=== PATIENT | female | born 1955 | race Caucasian/White ===

== ENCOUNTER 2019-06-23 17:36 | Emergency (ER) | payer OTHER ==
[~2019-06-23] VITALS: Ht 154.9 cm; Wt 59.1 kg
[~2019-06-23 17:36] MED LIST: GLIP5 PO; LISI-660 PO; METF-960 PO; OM-31CAP8 PO; PRAV10TA39 PO
[2019-06-23] MEDS ORDERED: ATOR20TA86 PO (17:51)
[2019-06-23] MEDS ORDERED: SITA25 PO (17:51)
[2019-06-23] MEDS ORDERED: LISI-662 PO (17:51)
[2019-06-23 18:00] LABS: GLUCOSE,POINT OF CARE 142 MG/DL (70-110)
[2019-06-23] MEDS ORDERED: ACETAMINOPHEN 500 MG TABLET PO ONE (18:45)
[2019-06-23] MEDS ORDERED: OM-31CAP2 PO (18:52)
[2019-06-23] MEDS ORDERED: CYCLOBENZAPRINE HCL 10 MG TABLET PO ONE (20:30)
[2019-06-23 20:53] VITALS: BP 135/78
== END 2019-06-23 20:55 | disposition home or self-care (01) ==
LOC: EMS 19:30
DX: S39.012A Strain of muscle, fascia and tendon of lower back, initial encounter (principal); E11.9 Type 2 diabetes mellitus without complications; E78.00 Pure hypercholesterolemia, unspecified; I10 Essential (primary) hypertension; Z79.899 Other long term (current) drug therapy; Z79.84 Long term (current) use of oral hypoglycemic drugs; Z88.6 Allergy status to analgesic agent; X50.9XXA Other and unspecified overexertion or strenuous movements or postures, initial encounter; Y93.89 Activity, other specified; Y92.89 Other specified places as the place of occurrence of the external cause; Y99.8 Other external cause status
CPT/HCPCS: 72100

== ENCOUNTER 2021-10-14 17:39 | Inpatient (IN) | payer OTHER ==
[~2021-10-14] VITALS: Ht 157.5 cm; Wt 58.4 kg
[~2021-10-14 17:39] MED LIST changes: +ATOR20TA86 PO; -LISI-660 PO; +LISI-894 PO; +METF-1211 PO; -METF-960 PO; +OM-31CAP2 PO; -OM-31CAP8 PO; -PRAV10TA39 PO; +SITA25 PO
[2021-10-14] MEDS ORDERED: ACETAMINOPHEN 500 MG TABLET PO ONE (18:30)
[2021-10-14] MEDS ORDERED: AmLODIPine BESYLATE 10 MG TABLET PO ONE (20:15)
[2021-10-14 20:22] LABS: COVID AG,FIA SOURCE NASAL SWAB
[2021-10-14 20:23] LABS: BASOPHILS % (AUTO) 0.6 % (0.0-2.0); EOSINOPHILS % (AUTO) 2.4 % (1.0-6.0); HEMATOCRIT 35.7 % (36-46); HEMOGLOBIN 12.3 g/dL (12.0-16.0); LYMPHOCYTES # (AUTO) 1.8 K/uL (1.0-4.8); LYMPHOCYTES % (AUTO) 22.7 % (22.0-44.0); MEAN CORPUSCULAR HEMOGLOBIN 31.2 pg (26.0-34.0); MEAN CORPUSCULAR HGB CONC 34.5 G/dL (31.0-37.0); MEAN CORPUSCULAR VOLUME 90 fL (80-100); MONOCYTES # (AUTO) 0.5 K/uL (0.1-1.0); MONOCYTES % (AUTO) 6.4 % (2.0-9.0); NEUTROPHILS # (AUTO) 5.4 K/uL (1.8-7.7); NEUTROPHILS % (AUTO) 67.9 % (40.0-70.0); PLATELET COUNT (AUTO) 202 K/uL (150-450); RED BLOOD CELL COUNT(AUTO) 3.95 MIL/uL (4.00-5.20); RED CELL DISTRIBUTION WIDTH 12.7 % (11.5-14.5)
[2021-10-14 20:31] LABS: ANION GAP 5 mmol/L (8-16); CALCIUM, TOTAL 9.9 mg/dL (8.8-10.5); CARBON DIOXIDE 26 mmol/L (22-29); CHLORIDE 104 mmol/L (98-107); CREATININE 1.36 mg/dL (0.60-1.30); GLOMERULAR FILTR. RATE CALC 39 mL/min (>60); GLUCOSE,RANDOM 172 mg/dL (70-110); SODIUM SERUM 135 mmol/L (136-145); UREA NITROGEN, BLOOD 29 mg/dL (7-18)
[2021-10-14 20:38] LABS: ALANINE AMINOTRANSFERASE 26 U/L (12-78); ALBUMIN 3.4 g/dL (3.4-5.0); ALKALINE PHOSPHATASE 88 U/L (46-116); ASPARTATE AMINOTRANSFERASE 18 U/L (15-37); BILIRUBIN,TOTAL 0.4 mg/dL (0.1-1.0); TOTAL PROTEIN, SERUM 7.9 g/dL (6.4-8.2)
[2021-10-14 20:41] LABS: C-REACTIVE PROTEIN QUANT < 0.05 mg/dL (0.00-0.30)
[2021-10-14] MEDS ORDERED: VANCOMYCIN 1GM/WATER(PEG/NADA) 200 ML IV ONE (20:45)
[2021-10-14 21:25] LABS: ERYTHROCYTE SEDIMENTATION RATE 45 MM/HR (0-20)
[2021-10-14] MEDS ORDERED: 0.9% SODIUM CHLORIDE 10 ML SYRINGE IVP PRN (21:45)
[2021-10-14 23:16] VITALS: BP 197/87
[2021-10-15 05:41] VITALS: BP 147/72
[2021-10-15] MEDS: GlipiZIDE 5 MG TABLET PO SCH (06:06)
[2021-10-15 06:19] LABS: BASOPHILS % (AUTO) 0.5 % (0.0-2.0); EOSINOPHILS % (AUTO) 3.2 % (1.0-6.0); HEMATOCRIT 35.9 % (36-46); HEMOGLOBIN 12.2 g/dL (12.0-16.0); LYMPHOCYTES # (AUTO) 1.6 K/uL (1.0-4.8); LYMPHOCYTES % (AUTO) 27.2 % (22.0-44.0); MEAN CORPUSCULAR HEMOGLOBIN 30.9 pg (26.0-34.0); MEAN CORPUSCULAR HGB CONC 34.1 G/dL (31.0-37.0); MEAN CORPUSCULAR VOLUME 91 fL (80-100); MONOCYTES # (AUTO) 0.4 K/uL (0.1-1.0); MONOCYTES % (AUTO) 7.7 % (2.0-9.0); NEUTROPHILS # (AUTO) 3.5 K/uL (1.8-7.7); NEUTROPHILS % (AUTO) 61.4 % (40.0-70.0); PLATELET COUNT (AUTO) 196 K/uL (150-450); RED BLOOD CELL COUNT(AUTO) 3.96 MIL/uL (4.00-5.20); RED CELL DISTRIBUTION WIDTH 12.7 % (11.5-14.5)
[2021-10-15] MEDS: VANCOMYCIN HCL 1 GM in DEXTROSE 5%-WATER 250 ML IV SCH (07:34)
[2021-10-15] MEDS: ATORVASTATIN CALCIUM 20 MG TABLET PO SCH (07:55)
[2021-10-15] MEDS: SitaGLIPtin PHOSPHATE 25 MG TABLET PO SCH (07:55)
[2021-10-15] MEDS: LISINOPRIL 20 MG TABLET PO SCH (07:56)
[2021-10-15] MEDS ORDERED: VANCOMYCIN 1GM/WATER(PEG/NADA) 200 ML IV SCH (08:00)
[2021-10-15 08:36] VITALS: BP 146/74
[2021-10-15] MEDS ORDERED: DEXTROSE 50%-WATER 25 GM/50 ML SYRINGE IVP PRN (11:45)
[2021-10-15] MEDS: INSULIN LISPRO 100 UNITS/ML SQ PRN ×3 (12:07→21:10)
[2021-10-15 16:55] LABS: GLUCOMETER DEV NAME(LOC) 6S.1B; GLUCOSE,POINT OF CARE 291 MG/DL (70-110)
[2021-10-15 17:46] LABS: GLUCOMETER DEV NAME(LOC) 6N.2; GLUCOSE,POINT OF CARE 175 MG/DL (70-110)
[2021-10-15 17:51] LABS: GLUCOMETER DEV NAME(LOC) 6N.1; GLUCOSE,POINT OF CARE 252 MG/DL (70-110)
[2021-10-15 19:55] VITALS: BP 153/74
[2021-10-15 21:31] LABS: GLUCOMETER DEV NAME(LOC) 6S.1B; GLUCOSE,POINT OF CARE 347 MG/DL (70-110)
[2021-10-16 04:30] VITALS: BP 143/74
[2021-10-16] MEDS: GlipiZIDE 5 MG TABLET PO SCH (05:33)
[2021-10-16] MEDS: INSULIN LISPRO 100 UNITS/ML SQ PRN ×4 (05:34→20:33)
[2021-10-16 06:02] LABS: GLUCOMETER DEV NAME(LOC) 6S.1B; GLUCOSE,POINT OF CARE 213 MG/DL (70-110)
[2021-10-16 06:32] LABS: BILIRUBIN,TOTAL 0.5 mg/dL (0.1-1.0); CALCIUM, TOTAL 10.2 mg/dL (8.8-10.5); CREATININE 1.26 mg/dL (0.60-1.30); POTASSIUM 4.5 mmol/L (3.5-5.1); TOTAL PROTEIN, SERUM 7.3 g/dL (6.4-8.2); VANCOMYCIN,RANDOM 13.4 mcg/mL (25.0-50.0)
[2021-10-16] MEDS: VANCOMYCIN HCL 1 GM in DEXTROSE 5%-WATER 250 ML IV SCH (07:43)
[2021-10-16] MEDS ORDERED: SODIUM CHLORIDE 0.9% 250 ML IV ONE (07:48)
[2021-10-16 08:00] VITALS: BP 136/85
[2021-10-16] MEDS: SitaGLIPtin PHOSPHATE 25 MG TABLET PO SCH (09:09)
[2021-10-16] MEDS: LISINOPRIL 20 MG TABLET PO SCH (09:09)
[2021-10-16] MEDS: ATORVASTATIN CALCIUM 20 MG TABLET PO SCH (09:09)
[2021-10-16 16:00] VITALS: BP 162/75
[2021-10-16 17:41] LABS: GLUCOMETER DEV NAME(LOC) 6S.1B; GLUCOSE,POINT OF CARE 249 MG/DL (70-110)
[2021-10-16 18:51] VITALS: BP 188/82
[2021-10-16] MEDS ORDERED: LABETALOL HCL 5 MG/ML 20 ML VIAL IVP PRN (19:00)
[2021-10-16 19:45] VITALS: BP 179/75
[2021-10-16] MEDS: VANCOMYCIN HCL 500 MG in DEXTROSE 5%-WATER 100 ML IV SCH (20:01)
[2021-10-16 21:25] LABS: GLUCOMETER DEV NAME(LOC) 6N.1; GLUCOSE,POINT OF CARE 362 MG/DL (70-110)
[2021-10-16 23:32] VITALS: BP 137/69
[2021-10-17 02:30] LABS: GLUCOMETER DEV NAME(LOC) 6N.2; GLUCOSE,POINT OF CARE 180 MG/DL (70-110)
[2021-10-17 04:37] VITALS: BP 112/65
[2021-10-17] MEDS: GlipiZIDE 5 MG TABLET PO SCH (05:32)
[2021-10-17] MEDS: INSULIN LISPRO 100 UNITS/ML SQ PRN ×4 (05:35→20:45)
[2021-10-17 06:06] LABS: GLUCOMETER DEV NAME(LOC) 6N.1; GLUCOSE,POINT OF CARE 250 MG/DL (70-110)
[2021-10-17 06:10] LABS: CALCIUM, TOTAL 10.2 mg/dL (8.8-10.5); CREATININE 1.37 mg/dL (0.60-1.30); POTASSIUM 4.4 mmol/L (3.5-5.1)
[2021-10-17] MEDS: VANCOMYCIN HCL 500 MG in DEXTROSE 5%-WATER 100 ML IV SCH ×2 (07:30→20:44)
[2021-10-17 08:00] VITALS: BP 163/74
[2021-10-17] MEDS: AmLODIPine BESYLATE 10 MG TABLET PO SCH (08:59)
[2021-10-17] MEDS: SitaGLIPtin PHOSPHATE 25 MG TABLET PO SCH (08:59)
[2021-10-17] MEDS: ATORVASTATIN CALCIUM 20 MG TABLET PO SCH (08:59)
[2021-10-17] MEDS: LISINOPRIL 20 MG TABLET PO SCH (09:00)
[2021-10-17] MEDS ORDERED: COLCHICINE 0.6 MG TABLET PO PRN (11:00)
[2021-10-17 12:11] LABS: GLUCOMETER DEV NAME(LOC) 6N.2; GLUCOSE,POINT OF CARE 251 MG/DL (70-110)
[2021-10-17 16:13] VITALS: BP 139/69
[2021-10-17 17:27] LABS: GLUCOMETER DEV NAME(LOC) 6N.2; GLUCOSE,POINT OF CARE 246 MG/DL (70-110)
[2021-10-17 20:18] VITALS: BP 164/76
[2021-10-17 23:11] LABS: GLUCOMETER DEV NAME(LOC) 6S.1B; GLUCOSE,POINT OF CARE 350 MG/DL (70-110)
[2021-10-18 01:05] VITALS: BP 150/71
[2021-10-18 04:35] VITALS: BP 157/80
[2021-10-18] MEDS: GlipiZIDE 5 MG TABLET PO SCH (05:37)
[2021-10-18] MEDS: INSULIN LISPRO 100 UNITS/ML SQ PRN ×2 (05:40→12:22)
[2021-10-18 06:36] LABS: GLUCOMETER DEV NAME(LOC) 6S.1B; GLUCOSE,POINT OF CARE 287 MG/DL (70-110)
[2021-10-18 07:03] LABS: CALCIUM, TOTAL 10.4 mg/dL (8.8-10.5); CREATININE 1.29 mg/dL (0.60-1.30); POTASSIUM 4.9 mmol/L (3.5-5.1); VANCOMYCIN,RANDOM 22.5 mcg/mL (25.0-50.0)
[2021-10-18 08:32] VITALS: BP 137/76
[2021-10-18] MEDS: VANCOMYCIN HCL 500 MG in DEXTROSE 5%-WATER 100 ML IV SCH (08:51)
[2021-10-18] MEDS: SitaGLIPtin PHOSPHATE 25 MG TABLET PO SCH (08:51)
[2021-10-18] MEDS: AmLODIPine BESYLATE 10 MG TABLET PO SCH (08:51)
[2021-10-18] MEDS: LISINOPRIL 20 MG TABLET PO SCH (08:52)
[2021-10-18] MEDS: ATORVASTATIN CALCIUM 20 MG TABLET PO SCH (08:52)
[2021-10-18] MEDS ORDERED: AMLO-258 PO (13:13)
[2021-10-18] MEDS ORDERED: COLC0.6T73 PO (13:13)
[2021-10-18] MEDS ORDERED: CLIN-142 PO (13:13)
[2021-10-18] MEDS ORDERED: CLINDAMYCIN HCL 300 MG CAPSULE PO SCH (16:00)
[2021-10-18 17:07] LABS: GLUCOMETER DEV NAME(LOC) 6S.1B; GLUCOSE,POINT OF CARE 237 MG/DL (70-110)
== END 2021-10-18 14:45 | disposition home or self-care (01) | DRG 638 ==
LOC: EMS 17:51 → 6S 21:36
PROVIDERS: ADMIT Hospitalist; ATTEND Hospitalist
DX: E11.69 Type 2 diabetes mellitus with other specified complication (principal); M86.8X7 Other osteomyelitis, ankle and foot; M10.9 Gout, unspecified; L03.032 Cellulitis of left toe; L08.9 Local infection of the skin and subcutaneous tissue, unspecified; E78.5 Hyperlipidemia, unspecified; I10 Essential (primary) hypertension; Z20.822 Contact with and (suspected) exposure to COVID-19; E78.00 Pure hypercholesterolemia, unspecified; Z88.8 Allergy status to other drugs, medicaments and biological substances
CPT/HCPCS: 73718; 80048; 80053; 80202; 82962; 84550; 85025; 85651; 86140; 87040; 99285; J3370; J7050; J7060; Q9967

== ENCOUNTER 2022-11-04 09:25 | Emergency (ER) | payer MEDICARE, OTHER ==
[~2022-11-04] VITALS: Ht 157.5 cm; Wt 70.5 kg
[~2022-11-04 09:25] MED LIST changes: +AMLO-258 PO; +CLIN-142 PO; +COLC0.6T73 PO; -GLIP5 PO; +GLIP5TAB12 PO
[2022-11-04 09:51] LABS: BASOPHILS % (AUTO) 0.5 % (0.0-2.0); EOSINOPHILS % (AUTO) 3.6 % (1.0-6.0); HEMATOCRIT 37.4 % (36-46); HEMOGLOBIN 12.6 g/dL (12.0-16.0); LYMPHOCYTES # (AUTO) 1.4 K/uL (1.0-4.8); LYMPHOCYTES % (AUTO) 19.7 % (22.0-44.0); MEAN CORPUSCULAR HEMOGLOBIN 31.4 pg (26.0-34.0); MEAN CORPUSCULAR HGB CONC 33.6 G/dL (31.0-37.0); MEAN CORPUSCULAR VOLUME 94 fL (80-100); MONOCYTES # (AUTO) 0.4 K/uL (0.1-1.0); MONOCYTES % (AUTO) 5.6 % (2.0-9.0); NEUTROPHILS % (AUTO) 70.6 % (40.0-70.0); PLATELET COUNT (AUTO) 223 K/uL (150-450); RED BLOOD CELL COUNT(AUTO) 3.99 MIL/uL (4.00-5.20); RED CELL DISTRIBUTION WIDTH 12.7 % (11.5-14.5)
[2022-11-04 10:12] LABS: CALCIUM, TOTAL 10.6 mg/dL (8.8-10.5); CREATININE 1.45 mg/dL (0.60-1.30); POTASSIUM 4.3 mmol/L (3.5-5.1)
[2022-11-04 10:18] LABS: ALBUMIN 3.4 g/dL (3.4-5.0); BILIRUBIN,TOTAL 0.5 mg/dL (0.1-1.0); TOTAL PROTEIN, SERUM 7.4 g/dL (6.4-8.2)
[2022-11-04] MEDS ORDERED: HYDR-4870 PO (12:59)
[2022-11-04 13:10] VITALS: BP 160/84
== END 2022-11-04 13:37 | disposition home or self-care (01) ==
LOC: EMS 09:32
DX: M79.89 Other specified soft tissue disorders (principal); E11.9 Type 2 diabetes mellitus without complications; I10 Essential (primary) hypertension; E78.00 Pure hypercholesterolemia, unspecified; Z88.5 Allergy status to narcotic agent
CPT/HCPCS: 71045; 80053; 82962; 83880; 84484; 85025; 93005; 99285; 36415-L1; 36415-TC